=== PATIENT | male | born 1955 | race Caucasian/White ===

== ENCOUNTER → 2016-08-22 | Outpatient (CLI) | payer BC ==
[2016-08-22 08:18] LABS: CH 30.5; CHCM 33.4; HCT 45.1 % (39.0-53.0); HDW 2.96; HGB 14.8 gm/dL (13.0-17.5); MCH 30.2 pg (25.0-35.0); MCHC 32.9 g/dL (31.0-37.0); MCV 91.8 fL (80.0-100.0); Mean Platelet Volume 7.4; RBC 4.91 m/uL (4.30-5.90); RDW 13.6 % (11.5-15.5); WBC 8.4 k/uL (3.8-10.6)
[2016-08-22 08:27] LABS: INR 1.5 (<1.1); Prothrombin Time 14.3 sec (9.0-12.0)
[2016-08-22 08:41] LABS: Anion Gap 12 mmol/L; Blood Urea Nitrogen 19 mg/dL (9-20); Calcium 8.9 mg/dL (8.4-10.2); Carbon Dioxide 26 mmol/L (22-30); Chloride 105 mmol/L (98-107); Glucose 116 mg/dL (74-99); Non-African American GFR(MDRD) >60 (>60 ml/min/1.73 sqM); Potassium 4.2 mmol/L (3.5-5.1); Sodium 143 mmol/L (137-145)
== END | disposition home or self-care (01) ==
LOC: LABWHC1 07:59
PROVIDERS: ATTEND Internal Medicine Cardiovascular Disease
DX: I48.4 Atypical atrial flutter (principal)
CPT/HCPCS: 36415; 80048; 85027; 85610

== ENCOUNTER → 2017-05-18 | Outpatient (CLI) | payer BC ==
--- NOTE | 2017-05-18 16:26 | XR ---
EXAMINATION TYPE: XR chest 2V DATE OF EXAM: 05/18/2017 COMPARISON: 06/29/2015 INDICATION: Chest wall pain TECHNIQUE: Frontal and lateral views of the chest are obtained. FINDINGS: The heart size is normal. The pulmonary vasculature is normal. The lungs are clear. Pacemaker overlies left chest. Air is within loops of bowel in the right diaphr agm. Sternotomy wires are present. No pneumothorax is evident. No acute displaced rib fractures are identified. IMPRESSION: 1. No acute pulmonary process.
== END | disposition home or self-care (01) ==
LOC: RADXRMAIN 15:51
PROVIDERS: ATTEND Family Medicine
DX: R07.89 Other chest pain (principal)
CPT/HCPCS: 71020

== ENCOUNTER 2017-07-27 11:27 | Emergency (ER) | payer BC, OTHER ==
[2017-07-27 11:56] VITALS: BP 131/75; PULSE 70; RESP 16; TEMP 98.1
--- NOTE | 2017-07-27 12:56 | ED ---
Head Injury HPI - General Chief complaint: Head Injury Stated complaint: [facility] - HEAD INJURY FROM FALL Time Seen by Provider: 07/27/17 12:07 Source: patient, RN notes reviewed Mode of arrival: ambulatory Limitations: no limitations - History of Present Illness Initial comments: This is a 62-year-old male who presents to the emergency department with chief complaint of head injury. 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 This occurred at approximately 8:45 AM. Patient states that he tried to catch his fall by extending his arms out but that he hit his left cheek on the concrete floor. Patient cut his left cheek so he applied antiseptic and a bandage. Patient denies any loss of consciousness, headache or dizziness. He states that he did take some naproxen. Patient admits to taking a blood thinners. He states that the impact on the floor caused his safety glasses to shatter. Denies any other injuries. Denies fever, chills, chest pain, shortness of breath, abdominal pain , nausea or vomiting, constipation or diarrhea, dysuria or hematuria, numbness or tingling, headache or vision changes. - Related Data Home Medications Medication Instructions Recorded Confirmed Levothyroxine Sodium [Synthroid] 50 mcg PO DAILY 06/10/17 07/27/17 Metoprolol Tartrate [Lopressor] 50 mg PO BID 06/10/17 07/27/17 Previous Rx's Medication Instructions Recorded Atorvastatin [Lipitor] 10 mg PO HS tab 07/01/15 Finasteride [Proscar] 5 mg PO DAILY tab 07/01/15 Rivaroxaban [Xarelto] 20 mg PO HS tab 07/01/15 Allergies/Adverse reactions: Allergies Allergy/AdvReac Type Severity Reaction Status Date / Time No Known Allergies Allergy Verified 07/27/17 12:10 Review of Systems ROS Statement: Those systems with pertinent positive or pertinent negative responses have been documented in the HPI. ROS Other: All systems not noted in ROS Statement are negative. Past Medical History Past Medical History: Atrial Fibrillation, Hypertension, Thyroid Disorder Additional Past Medical History / Comment(s): pacemaker, hypertrophic cardiomyopathy with obstruction History of Any Multi-Drug Resistant Organisms: None Reported Past Surgical History: Heart Catheterization, Pacemaker Additional Past Surgical History / Comment(s): surgery for hypertrophic cardiomyopathy, maze procedure, colonoscopy Past Anesthesia/Blood Transfusion Reactions: No Reported Reaction Type of Cardiac Device: Permanent Pacemaker Device Placement Date:: 08/17 Past Psychological History: No Psychological Hx Reported Smoking Status: Never smoker Past Alcohol Use History: Occasional Past Drug Use History: None Reported - Past Family History Mother Family Medical History: Dementia Father Family Medical History: Cancer Additional Family Medical History / Comment(s): colorectal cancer, parkinsons General Exam - General Exam Comments Initial Comments: General: Awake and alert, well-developed; in no apparent distress. HEENT: Head normocephalic. 2 superficial abrasions left lateral cheek. No active bleeding. Ecchymosis and mild soft tissue swelling noted at left lateral eye. No tenderness on palpation of the orbits or maxilla. Pupils are equal, round and reactive to light. Extraocular movements intact. Neck: Supple. Normal ROM. Cardiovascular: Regular rate and rhythm. No murmurs, rubs or gallops. Chest symmetrical. Respiratory: Lungs clear to auscultation bilaterally. No wheezes, rales or rhonchi. Normal respiratory effort with no use of accessory muscles. Musculoskeletal: Normal ROM, no tenderness bilateral upper and lower extremities. Ambulating normally. Skin: [place], warm and dry without rashes or lesions. Neurological: Alert and oriented x3. CN II-XII grossly intact. Speech is fluent and answers are appropriate. No focal neuro deficits. Psychiatric: Normal mood and affect. No overt signs of depression or anxiety noted. Limitations: no limitations Course Vital Signs 07/27/17 11:54 Temperature 98.1 F Pulse Rate 70 Respiratory 16 Rate Blood Pressure 131/75 O2 Sat by Pulse 99 Oximetry Medical Decision Making - Medical Decision Making This is a 62-year-old male who presents to the emergency department with chief complaint of head injury. Patient sustained superficial abrasions to the left lateral cheek and bruising around the left eye. Extraocular movements are intact and patient denies any vision changes. Patient does admit to being on Xarelto. CT brain and cervical spine without contrast revealed no acute processes. CT facial bones revealed no evidence for facial bone fractures. Patient is in no acute distress. He will be discharged home. Recommended follow-up with his primary care provider. Patient is in agreement with plan and voices understanding. All questions were answered. This case was discussed with attending physician, Dr. Briceño. - Radiology Data Radiology results: report reviewed CT brain without contrast impression: Age-related atrophic and chronic small vessel ischemic change without acute intracranial process seen at this time. CT cervical spine without contrast impression: No evidence for acute fracture or subluxation of the cervical spine. CT facial bones without contrast impression: No evidence for depressed or displaced facial bone fracture. Disposition Clinical Impression: Facial abrasion, Facial contusion Disposition: HOME SELF-CARE Instructions: Abrasion (ED), Facial Contusion (ED) Additional Instructions: Please follow up with primary care provider within 1-2 days. Return to emergency department if symptoms should worsen or any concerns arise. Referrals: Jeramy Villa MD [Primary Care Provider] - 1-2 days Time of Disposition: 14:06
--- NOTE | 2017-07-27 13:45 | CT ---
EXAMINATION TYPE: CT brain bushra childs DATE OF EXAM: 07/27/2017 COMPARISON: NONE HISTORY: fall CT DLP: 1405.[address] of the brain was performed. The ventricles, basal cisterns and sulci overlying the cerebral convexities demonstrate moderate enla rgement. There is no evidence for intracranial hemorrhage or sulcal effacement. There is decreased attenuatio n about the periventricular white matter and deep white matter of both cerebral hemispheres, compatib le with chronic small vessel ischemia. No mass effects are seen. If symptoms persist consider MRI. Osseous calvarium is intact. IMPRESSION: 1. Age related atrophic and chronic small vessel ischemic change without acute intracranial process seen at this time. CT Cervical Spine: Unenhanced CT of the cervical spine was performed with bone and soft tissue window settings submitted . Coronal and sagittal reconstruction is obtained. There is normal alignment and prevertebral soft tissues. No evidence for acute cervical fracture . Scattered degenerative disc disease and spondylosis. Biapical scarring. IMPRESSION: 1. No evidence for acute fracture or subluxation of the cervical spine.
--- NOTE | 2017-07-27 13:54 | CT ---
EXAMINATION TYPE: CT facial bones wo con DATE OF EXAM: 07/27/2017 COMPARISON: NONE HISTORY: fall CT DLP: [address] of the facial bones was performed in the axial and coronal planes. Bone and soft tissu e window settings are submitted. No significant soft tissue swelling is appreciated. I do not see evidence for displaced facial bone fracture or depressed facial bone fracture. The globes are intact. Paranasal sinuses are well-aerated. IMPRESSION: 1. No evidence for depressed or displaced facial bone fracture.
== END 2017-07-27 14:17 | disposition home or self-care (01) ==
LOC: EC 11:27
DX: S00.83XA Contusion of other part of head, initial encounter (principal); I10 Essential (primary) hypertension; E07.9 Disorder of thyroid, unspecified; Z79.899 Other long term (current) drug therapy; W01.10XA Fall on same level from slipping, tripping and stumbling with subsequent striking against unspecified object, initial encounter; Y99.0 Civilian activity done for income or pay
CPT/HCPCS: 70450; 70486; 72125; 99283

== ENCOUNTER → 2019-02-28 | Outpatient (CLI) | payer BC ==
--- NOTE | 2019-02-28 23:35 | CONS ---
CONSULTATION DATE OF SERVICE: 02/28/2019 This patient is a 63-year-old gentleman who has been evaluated in the sleep center for possible obstructive sleep apnea-hypopnea syndrome. HISTORY OF PRESENT ILLNESS/SLEEP-WAKE EVALUATION: Patient's usual sleep schedule is from 11 p.m. until about 6 a.m. No problems with falling asleep. No TV in bedroom. He usually sleeps on the side position with his , with snoring and some episodes of gasping for air. While he was in the hospital he was told about episodes of stopped breathing during sleep. The patient has one episode of nocturia at night. In the morning, the patient has difficulties paying attention, falling asleep during the day, has problems with memory, concentration, irritability, depression, sexual dysfunction. [place] Sleepiness Scale is 7. PAST MEDICAL HISTORY: 1. Episodes of atrial fibrillation. 2. Hypertension. 3. Hyperlipidemia. 4. Hypothyroidism. 5. Hypertrophic cardiomyopathy. 6. Right club foot. PAST SURGICAL HISTORY: 1. Ablation of the heart for atrial fibrillation. 2. Open heart surgery for mitral valve repair. 3. Correction of hypertropic cardiomyopathy. 4. Permanent pacemaker insertion. MEDICATIONS: 1. Levothyroxine. 2. Atorvastatin. 3. Metoprolol. 4. Finasteride. 5. Xarelto. SOCIAL HISTORY: Negative for smoking. Alcohol consumption -- beer 1 to 2 times per month. FAMILY HISTORY: Hypertension, heart problems, hyperlipidemia, sleep apnea, snoring, diabetes, thyroid problems. REVIEW OF SYSTEMS: Snoring, awakenings from sleep, sometimes sleepiness during the day. Patient may take naps at 3 p.m. PHYSICAL EXAMINATION: GENERAL: A pleasant gentleman without distress. VITAL SIGNS: BP 113/72, HR 74, RR 16, height 5 feet 4-1/2 inches, weight 183 pounds, body mass index 30.9, temperature 97.7, oxygen saturation at room air 97%. HEENT: PERRLA, EOMI. Evaluation of oropharynx showed tongue protrudes midline. Extremely low position of soft palate. Mallampati IV. Some restriction of nasal breathing. NECK: Supple. No JVD. Thyroid is not palpable. Neck is 15-1/2 inches in circumference. LUNGS: Clear to percussion and to auscultation. Good air exchange. No wheezing or rhonchi. HEART: Slight systolic murmur on aorta. ABDOMEN: Obese. EXTREMITIES: Clubbing of right foot. PUNCH OPERATOR: Awake, alert, and oriented X3. Cranial nerves 2 to 7 intact. There is no fasciculation or atrophy. noted. No focal deficits observed. IMPRESSION: 1. Snoring, occasional awakenings from sleep with nocturia, extremely low position of soft palate, Mallampati IV, some episodes of sleepiness during the day; patient may take naps at 3 p.m.; obstructive sleep apnea-hypopnea syndrome. 2. History of atrial fibrillation, status post ablation procedure. 3. Hypertension. 4. Status post permanent pacemaker insertion. 5. History of hypertrophic cardiomyopathy, status post open heart surgery for repairing of mitral valve and clearing of obstruction. 6. Status post MAZE procedure for atrial fibrillation. 7. Status post permanent pacemaker insertion. 8. Clubbing of right foot. PLAN: 1. Polysomnography for evaluation of patient's breathing during sleep. 2. CPAP/BiPAP titration if sleep study confirms obstructive sleep apnea-hypopnea syndrome. 3. Preferable position during sleep on the side. 4. No driving if patient feels any sleepiness. 5. I will see patient for follow up visit to explain results of testing and following plan. Thank you very much for referring this patient for consultation. Sincerely, Skip Archer MD, PhD, FAASM Diplomat of [place] [employer] Truck Engine Technician of [facility] [place] MMODL / PAULAN: [id number] /
== END ==
LOC: SLEEP 15:32
PROVIDERS: ATTEND Internal Medicine
DX: G47.33 Obstructive sleep apnea (adult) (pediatric) (principal); I48.91 Unspecified atrial fibrillation; I10 Essential (primary) hypertension; Z95.2 Presence of prosthetic heart valve; Z86.79 Personal history of other diseases of the circulatory system; Z98.890 Other specified postprocedural states; Z79.899 Other long term (current) drug therapy
CPT/HCPCS: 99211

== ENCOUNTER → 2019-07-04 | Outpatient (CLI) | payer BC ==
--- NOTE | 2019-07-04 14:24 | SFUN ---
SLEEP CENTER FOLLOW UP NOTE DATE OF SERVICE: 07/04/2019 A 64-year-old gentleman who has been followed in the Sleep Center for treatment of obstructive sleep apnea-hypopnea syndrome. Recently patient who had home sleep apnea test which showed obstructive sleep apnea and subsequently he had CPAP titration, during titration, his respiration normalized after the patient received his CPAP unit. Today is his first visit after he started to use CPAP equipment. The patient is able to use CPAP equipment every night without significant problems. He sleep well with the machine and feels better during the day. [place] Sleepiness Scale today is 0. I discussed results of sleep study with the patient in detail. I checked reading from his CPAP unit. CPAP pressure is 10 cm of water. Usage is 100% of nights and 28/30 nights more than 4 hours which is great compliance. Average usage 5 hours 39 minutes per night. Maximal leak is 18.2 L/minute, which is acceptable, 95th percent of leak 10.5 L/minute. Apnea-hypopnea index 2.1 per hour. Average usage which is great numbers. MEDICATIONS: Levothyroxine, atorvastatin, metoprolol, finasteride, Xarelto eyedrops. PHYSICAL EXAM: Patient in no distress BP 127/80, HR 80, RR 14, weight 198.6, temperature 97.8, oxygen saturation at room air 97%. OROPHARYNX: Extremely low soft palate, Mallampati 4. NECK: Supple, no JVD. Thyroid is not palpable. LUNGS: Clear to percussion and to auscultation. Good air exchange. No wheezing or rhonchi. HEART: S1, S2 regular. No murmurs, gallops, or rubs. ABDOMEN: Soft and nontender. Bowel sounds are present. No organomegaly appreciated. EXTREMITIES: No clubbing or cyanosis. DRIVER COURIER: Awake, alert, and oriented X3. Cranial nerves 2 to 7 intact. There is no fasciculation or atrophy. noted. No focal deficits observed. IMPRESSION: 1. Moderate obstructive sleep apnea-hypopnea syndrome. Patient demonstrated 100% compliance with treatment, benefitting from treatment. 2. Mild obesity. 3. Mild periodic limb movements documented during titration. 4. History of atrial fibrillation, status post ablation procedure in touch. 5. Hypertension. 6. Status post permanent pacemaker insertion. 7. History of hypertrophic cardiomyopathy, status post open heart surgery for repairing the mitral valve and cleaning in the mitral valve. 8. Status post MAZE procedure for atrial fibrillation. 9. Clubbing of right foot. PLAN: 1. Patient will continue to use CPAP equipment every night for the whole night. 2. Watching weight. 3. Sleep hygiene with regular time in bed for at least 7.5 hours. 4. No driving if feeling sleepiness. 5. I will maintain all necessary prescriptions for CPAP supplies. 6. Follow-up visit in 1 year or earlier if patient has any problems. Thank you very much for allowing me to participate in the management of your patient. Sincerely, Skip Archer MD, PhD, FAASM Diplomat of [employer] [employer] [employer] Sales Representative Sales Manager of [facility] [place] MMODL / IJN: [id number] /
== END | disposition home or self-care (01) ==
LOC: SLEEP 13:18
PROVIDERS: ATTEND Internal Medicine
DX: G47.33 Obstructive sleep apnea (adult) (pediatric) (principal); G47.61 Periodic limb movement disorder; M21.541 Acquired clubfoot, right foot; I10 Essential (primary) hypertension; E66.9 Obesity, unspecified; Z95.0 Presence of cardiac pacemaker; Z86.79 Personal history of other diseases of the circulatory system; Z99.89 Dependence on other enabling machines and devices; Z79.890 Hormone replacement therapy; Z79.899 Other long term (current) drug therapy; Z98.890 Other specified postprocedural states

== ENCOUNTER → 2020-09-04 | Outpatient (CLI) | payer BC, MEDICARE ==
--- NOTE | 2020-09-04 09:29 | CT ---
EXAMINATION TYPE: CT chest wo con DATE OF EXAM: 09/04/2020 COMPARISON: Chest x-ray May 18, 2017 HISTORY: Chronic diastolic heart failure CT DLP: 416.80 mGycm. Automated Exposure Control for Dose Reduction was Utilized. TECHNIQUE: CT scan of the thorax is performed without IV contrast. FINDINGS: LUNGS: Elevated right hemidiaphragm is redemonstrated mild linear scarring and/or atelectasis in the anterior left lung base. No suspicious focal consolidation or groundglass opacity. No pleural effusio n or pneumothorax seen bilaterally. No suspicious new greater than 5 mm nodules or masses. Stable 5 m m subpleural nodule left lower lobe axial image 46. MEDIASTINUM: Lack of IV contrast is noted to limit evaluation for mediastinal and especially hilar ad enopathy. There are no definitive greater than 1 cm hilar or mediastinal lymph nodes. No pericardia l effusion is seen. Enlarged pulmonary arteries, main pulmonary artery measures 4.2 cm in diameter as measured 24, CT findings consistent with underlying pulmonary hypertension. Mild borderline moderate coronary artery calcification. Heart size upper limits of normal. There is moderate left atrial dila tation. There is dual-lead pacemaker with leads terminating in right atrium and right ventricle. OTHER: There is well-defined ovoid low dense 4.6 x 10.0 x 6.2 cm lesion axial image 16 and coronal im age 21 along the deeper oblique muscle in the right anterior abdominal wall, Hounsfield units fluid d ensity, suspect thin-walled cyst or possible old hematoma. This was present 2017 CT and stable. Lesio n presumed benign. Small degree of bilateral gynecomastia redemonstrated and stable with more nodular appearance on the left again seen. Underlying scoliosis or scoliotic curvature. IMPRESSION: Heart size is not enlarged. Moderate left atrial dilatation. Dual-lead pacemaker redemons trated. Underlying pulmonary artery hypertension noted. Chronic elevated right hemidiaphragm. No acut e pulmonary process.
== END ==
LOC: RADCTMAIN 07:27
PROVIDERS: ATTEND Internal Medicine
DX: I50.32 Chronic diastolic (congestive) heart failure (principal); I27.21 Secondary pulmonary arterial hypertension; I51.7 Cardiomegaly; J98.6 Disorders of diaphragm
CPT/HCPCS: 71250

== ENCOUNTER → 2020-09-25 | Outpatient (CLI) | payer BC, MEDICARE ==
--- NOTE | 2020-09-25 10:18 | XR ---
EXAMINATION TYPE: XR chest 2V DATE OF EXAM: 09/25/2020 HISTORY: Shortness of breath. COMPARISON: None. TECHNIQUE: Single view of the chest is submitted. FINDINGS: Demonstrated are scattered senescent parenchymal change. There is no evidence for focal infiltrate. The heart is stable. Hilar and mediastinal structures are within normal limits. Degenerative changes are seen of the dorsal spine. IMPRESSION: 1. Chronic changes without evidence for acute pulmonary disease.
== END | disposition home or self-care (01) ==
LOC: RADXRMAIN 09:54
PROVIDERS: ATTEND Internal Medicine
DX: I47.2 Ventricular tachycardia (principal)
CPT/HCPCS: 71046

== ENCOUNTER → 2021-03-30 | Outpatient (CLI) | payer BC, MEDICARE ==
--- NOTE | 2021-03-30 17:35 | US ---
EXAMINATION TYPE: US venous doppler duplex LE RT DATE OF EXAM: 03/30/2021 5:11 PM COMPARISON: NONE CLINICAL HISTORY: R60.0 Edema. Right lower leg redness and swelling with club foot x 3 days; patient on blood thinner since 2016 for cardiac condition SIDE PERFORMED: Right TECHNIQUE: The lower extremity deep venous system is examined utilizing real time linear array sonog lucia with graded compression, doppler sonography and color-flow sonography. VESSELS IMAGED: Common Femoral Vein Deep Femoral Vein Greater Saphenous Vein * Femoral Vein Popliteal Vein Small Saphenous Vein * Proximal Calf Veins (* superficial vessels) Right Leg: Negative for DVT. Negative for SVT. Edema channels are noted in lateral calf at skin brui ses. IMPRESSION: No evidence of deep vein thrombosis in the right leg.
== END | disposition home or self-care (01) ==
LOC: RADUSWWP 16:39
PROVIDERS: ATTEND Family Medicine
DX: R60.0 Localized edema (principal)

== ENCOUNTER → 2021-11-25 | Outpatient (CLI) | payer MEDICARE ==
[2021-11-25 23:24] LABS: Basophils # (A) 0.05 X 10*3/uL (0.00-0.10); Basophils % (A) 0.6 %; Eosinophils # (A) 0.27 X 10*3/uL (0.04-0.35); Eosinophils % (A) 3.4 %; HCT 44.9 % (39.6-50.0); HGB 14.2 g/dL (13.0-17.0); Immature Grans, Automated 0.8 %; Lymphocytes # (A) 1.24 X 10*3/uL (0.90-5.00); Lymphocytes % (A) 15.5 %; MCH 30.1 pg (27.0-32.0); MCHC 31.6 g/dL (32.0-37.0); MCV 95.1 fL (80.0-97.0); Mean Platelet Volume 10.4 fL (9.5-12.2); Monocytes % (A) 11.3 %; NRBC Per 100 WBC 0 /100 WBCS (0.0-0.0); Neutrophils # (A) 5.46 X 10*3/uL (1.80-7.70); Neutrophils % (A) 68.4 %; Platelet Count 266 X 10*3/uL (140-440); RBC 4.72 X 10*6/uL (4.40-5.60); RDW 13.3 % (11.5-14.5); WBC 7.98 X 10*3/uL (4.50-10.00)
== END | disposition home or self-care (01) ==
LOC: LABPAT 16:57
PROVIDERS: ATTEND Surgery
DX: Z01.818 Encounter for other preprocedural examination (principal); K40.90 Unilateral inguinal hernia, without obstruction or gangrene, not specified as recurrent; Z95.0 Presence of cardiac pacemaker
CPT/HCPCS: 36415; 85025; 93005

== ENCOUNTER 2021-11-26 08:27 | Day surgery (SDC) | payer MEDICARE, BC ==
[2021-11-23 15:05] VITALS: BMI 28.2
[~2021-11-26 08:27] MED LIST: ACETAMINOPHEN TAB 500 MG TAB PO PRN; HEPARIN SODIUM,PORCINE/PF 5,000 UNIT/0.5 ML SYRINGE SQ PRN
[2021-11-26] MEDS ORDERED: DEXAMETHASONE SOD PHOSPHATE 4 MG/ML 1 ML VIAL IV ONE (09:16)
[2021-11-26] MEDS ORDERED: LACTATED RINGERS 1,000 ML IV SCH (09:16)
[2021-11-26] MEDS ORDERED: ONDANSETRON 4 MG/2 ML VIAL IVP ONE ×2 (09:16→15:18)
[2021-11-26] MEDS ORDERED: HYDROmorphone 0.5 MG/0.5 ML SYRINGE IVP PRN (09:16)
[2021-11-26 09:56] LABS: Glucose,Whole Blood 117 mg/dL (75-99)
[2021-11-26] MEDS ORDERED: TAMSULOSIN 0.4 MG CAP.ER.24H PO ONE (11:46)
--- NOTE | 2021-11-26 11:48 | P.GSHP ---
History of Present Illness H&P Date: 11/26/21 Chief Complaint: Left inguinal hernia 66-year-old male known to our service. Patient was last seen in June of last year. Patient with complaints of a bulge that is mildly painful left groin. Since he was last seen he has more gurgling sensation in that area and more discomfort. He thinks it's larger. No constipation or diarrhea. Patient with history of benign right upper quadrant perihepatic mass. Past Medical History Past Medical History: Atrial Fibrillation, Eye Disorder, Hyperlipidemia, Hypertension, Prostate Disorder, Sleep Apnea/CPAP/BIPAP, Thyroid Disorder Additional Past Medical History / Comment(s): No issues with A-Fib since 2017. "Hypertropic Cardiomyopathy with Obstruction". Glaucoma. No CPAP use in one year. Enlarged prostate. History of Any Multi-Drug Resistant Organisms: None Reported Past Surgical History: AICD, Heart Catheterization, Pacemaker Additional Past Surgical History / Comment(s): Had pacemaker, was upgraded to an AICD. Open heart surgery in 2014 to repair mitral valve, surgery for hypertrophic cardiomyopathy, maze procedure, colonoscopy. Past Anesthesia/Blood Transfusion Reactions: No Reported Reaction Additional Past Anesthesia/Blood Transfusion Reaction / Comment(s): No hx blood transfusion. Type of Cardiac Device: AICD Device Placement Date:: 10/21 Per patient: Medtronic - Serial # [id number], Model # [id number]. Past Psychological History: No Psychological Hx Reported Smoking Status: Never smoker Past Alcohol Use History: Rare Past Drug Use History: None Reported - Past Family History Mother Family Medical History: Dementia Father Family Medical History: Cancer, Neurologic Disorder Additional Family Medical History / Comment(s): Colorectal cancer, Parkinsons. Medications and Allergies Home Medications Medication Instructions Recorded Confirmed Type Finasteride [Proscar] 5 mg PO DAILY tab 07/01/15 11/23/21 Rx Rivaroxaban [Xarelto] 20 mg PO HS tab 07/01/15 11/23/21 Rx Levothyroxine Sodium [Synthroid] 50 mcg PO QAM 06/10/17 11/23/21 History Atorvastatin [Lipitor] 10 mg PO DAILY 11/23/21 11/23/21 History Metoprolol Tartrate 25 mg PO BID 11/23/21 11/23/21 History Vit C/E/Zn/Coppr/Lutein/Zeaxan 3 each PO DAILY 11/23/21 11/23/21 History [Preservision Areds 2 Softgel] Allergies Allergy/AdvReac Type Severity Reaction Status Date / Time No Known Allergies Allergy Verified 11/23/21 14:41 Surgical - Exam Vital Signs Temp Pulse Resp BP Pulse Ox 97.6 F 64 16 138/70 99 11/26/21 09:34 11/26/21 09:34 11/26/21 09:34 11/26/21 09:34 11/26/21 09:34 Physical exam: General: Well-developed, well-nourished HEENT: Normocephalic, sclerae nonicteric Abdomen: Nontender, nondistended, reducible left inguinal hernia, no palpable hernia on right Extremities: No edema Neuro: Alert and oriented Results - Labs Abnormal Lab Results - Last 24 Hours (Table) 11/26/21 Range/Units 09:47 POC Glucose (mg/dL) 117 H (75-99) mg/dL Assessment and Plan (1) Left inguinal hernia Narrative/Plan: 66-year-old male with reducible left inguinal hernia. We'll proceed with laparoscopic da Tomasa assisted repair left internal hernia with mesh, possible open, possible bilateral. Risks of bleeding, infection, recurrence, bladder and bowel injury, numbness, nerve injury, conversion to an open procedure were discussed with the patient. The patient understands and wishes to proceed. Current Visit: Yes Status: Acute Code(s): K40.90 - UNIL INGUINAL HERNIA, W/O OBST OR GANGR, NOT SPCF RECUR SNOMED Code(s): 510249312
[2021-11-26] MEDS ORDERED: GLYCOPYRROLATE 0.2 MG/ML 2 ML VIAL ONE (12:09)
[2021-11-26] MEDS ORDERED: ROCURONIUM 10 MG/ML (5 ML VIAL) IV ONE (12:09)
[2021-11-26] MEDS ORDERED: NEOSTIGMINE 1 MG/ML 10 ML VIAL ONE (12:09)
[2021-11-26] MEDS ORDERED: LIDOCAINE 2% INJ 20 MG/ML (2 ML VIAL) ONE (12:09)
[2021-11-26] MEDS ORDERED: SUCCINYLCHOLINE CHLORIDE 100 MG/5 ML SYR IV ONE (12:09)
[2021-11-26] MEDS ORDERED: PROPOFOL 10 MG/ML 20 ML VIAL IV ONE (12:09)
[2021-11-26] MEDS ORDERED: fentaNYL (PF) 50 MCG/ML 2 ML AMP ONE (12:09)
[2021-11-26] MEDS ORDERED: MIDAZOLAM 2 MG/2 ML VIAL ONE (12:09)
[2021-11-26] MEDS ORDERED: BUPIVACAIN-EPI 0.25%-1:200,000 30 ML VIAL SQ ONE (12:11)
[2021-11-26] MEDS ORDERED: LACTATED RINGERS 1,000 ML IV ONE (13:30)
[2021-11-26 14:40] VITALS: TEMP 97.3
[2021-11-26] MEDS ORDERED: TAMSULOSIN 0.4 MG CAP.ER.24H PO STA (14:46)
[2021-11-26] MEDS ORDERED: ACETAMINOPHEN TAB 325 MG TAB PO SCH (15:00)
[2021-11-26] MEDS ORDERED: HYDROmorphone 0.5 MG/0.5 ML SYRINGE IVP ONE ×2 (15:13)
[2021-11-26 15:50] VITALS: BP 125/67; PULSE 61; RESP 14
[2021-11-26] MEDS ORDERED: IBUPROFEN 600 MG TAB PO SCH (18:00)
--- NOTE | 2021-12-02 13:47 | P.OP ---
Date of Procedure: 12/02/21 Procedure(s) Performed: PREOPERATIVE DIAGNOSIS: Left inguinal hernia POSTOPERATIVE DIAGNOSIS: Large left indirect inguinal hernia containing sigmoid colon PROCEDURE: Laparoscopic da Tomasa assisted repair large left indirect inguinal hernia with mesh SURGEON: Dr. Barry ANESTHESIA: General OPERATIVE PROCEDURE DETAILS: Patient was placed in the operating table in the supine position. The patient was placed under general anesthesia. The abdomen was prepped and draped in usual sterile fashion. A small curvilinear supraumbilical incision was made. The fascia was retracted anteriorly with Vermilion forceps. The Veress needle was inserted. The saline drop test was normal. Insufflation took place to 15 mmHg. An 8 mm trocar was placed into the peritoneal cavity. 2 additional 8 mm trochars were placed in the right upper quadrant and left upper quadrant under visualization. The robotic arms were the n brought in and docked into place. The fenestrated bipolar was used in the left arm and the laparoscopic jameson was utilized in the right arm. A 30 8 mm scope was used in the up position. The peritoneal cavity was inspected. A large hernia indirect was noted on the left-hand side containing a long segment of sigmoid colon. The peritoneum was incised in a horizontal fashion cephalad to the internal inguinal ring. Following that careful dissection of the preperitoneal space took place. This took place using both electrocautery, sharp dissection but primarily blunt dissection. Visualization of the pubic tubercle and Lopez's ligament took place medially. Full dissection took place laterally as well. The hernia sac was fully dissected. Once we had adequate space the extra-large Bard 3-D mid mesh was advanced into the preperitoneal space and flattened out appropriately to cover all potential hernia sites. 20V absorbable LOC suture were used in a linear fashion above the pubic tubercle medially to secure the mesh given the large defect size.. The peritoneal defect was then closed using a absorbable 2-0 VLok suture. The hernia sac was incorporated into the peritoneal closure to help prevent future recurrence. The pneumoperitoneum was then evacuated. The skin of all 3 sites was closed using a 4-0 Monocryl stitch. Skin glue was then applied. TYPE OF MESH USED: Bard XL 3-D mid LOCATION OF MESH: Preperitoneal FIXATION: Absorbable 20V lock suture PREOPERATIVE DISCUSSION ON SMOKING CESSASTION: Yes PREOPERATIVE DISCUSSION ON MORBID OBESITY: Yes PREOPERATIVE DISCUSSION ON APPROPRIATE USE OF NARCOTIC USE: Yes PREOPERATIVE EDUCATION: Multi Modal, Smoking Cessation and Weight Loss with BMI over 35. DISPOSITION: Stable to recovery room
== END 2021-11-26 16:35 | disposition home or self-care (01) ==
LOC: OR 08:27
PROVIDERS: ATTEND Surgery
DX: K40.90 Unilateral inguinal hernia, without obstruction or gangrene, not specified as recurrent (principal); E78.5 Hyperlipidemia, unspecified; G47.30 Sleep apnea, unspecified; H40.9 Unspecified glaucoma; I10 Essential (primary) hypertension; I42.2 Other hypertrophic cardiomyopathy; I48.91 Unspecified atrial fibrillation; N40.0 Benign prostatic hyperplasia without lower urinary tract symptoms; Z95.810 Presence of automatic (implantable) cardiac defibrillator
CPT/HCPCS: 49650; S2900; 86850; 86900; 86901